=== PATIENT | male | born 1945 | race Caucasian/White ===

== ENCOUNTER 2021-09-15 19:12 | Emergency (ER) | payer MEDICARE, BC ==
--- NOTE | 2021-09-15 20:49 | EDM.PDOC ---
ED HPI GENERAL MEDICAL PROBLEM - General Stated Complaint: ANKLE INJURY Time Seen by Provider: 09/15/21 19:30 Source of Information: Reports: Patient History Limitations: Reports: No Limitations - History of Present Illness INITIAL COMMENTS - FREE TEXT/NARRATIVE: Patient presented to the ED because of right ankle injury. He missed a step while going down the steps from the tractor. He c/o 7/10 pain and can't ambulate. Right Ankle Pain Score (Numeric/FACES): 8 - Related Data Allergies Allergy/AdvReac Type Severity Reaction Status Date / Time No Known Allergies Allergy Verified 06/15/16 11:17 Home Meds: Home Meds Aspirin 81 mg PO DAILY 09/15/21 [History] Ezetimibe 10 mg PO DAILY 09/15/21 [History] Furosemide 10 mg PO DAILY 09/15/21 [History] Metoprolol Succinate 25 mg PO BEDTIME 09/15/21 [History] atorvaSTATin [Lipitor] 40 mg PO BEDTIME 09/15/21 [History] lisinopriL [Lisinopril] 2.5 mg PO DAILY 09/15/21 [History] Past Medical History HEENT History: Reports: Impaired Vision Gastrointestinal History: Reports: Colon Polyp Genitourinary History: Reports: Other (See Below) Other Genitourinary History: bladder infection, nephritis Musculoskeletal History: Reports: RA Review of Systems - Review of Systems Review Of Systems: See Below Constitutional: Reports: No Symptoms Eyes: Reports: No Symptoms Ears: Reports: No Symptoms Nose: Reports: No Symptoms Mouth/Throat: Reports: No Symptoms Respiratory: Reports: No Symptoms Cardiovascular: Reports: No Symptoms GI/Abdominal: Reports: No Symptoms Genitourinary: Reports: No Symptoms Musculoskeletal: Reports: Joint Pain, Joint Swelling Skin: Reports: No Symptoms Neurological: Reports: No Symptoms Psychiatric: Reports: No Symptoms ED EXAM, GENERAL - Physical Exam Exam: See Below Exam Limited By: No Limitations General Appearance: Alert, No Apparent Distress Eye Exam: Bilateral Eye: PERRL Ears: Normal External Exam, Normal Canal, Normal TMs Nose: Normal Inspection, Normal Mucosa, No Blood Throat/Mouth: Normal Inspection, Normal Lips, Normal Teeth, Normal Oropharynx, Normal Voice Head: Atraumatic, Normocephalic Neck: Normal Inspection, Supple, Non-Tender, Full Range of Motion Respiratory/Chest: No Respiratory Distress, Lungs Clear, Normal Breath Sounds, No Accessory Muscle Use, Chest Non-Tender Cardiovascular: Normal Peripheral Pulses, Regular Rate, Rhythm, No Edema, No Gallop, No JVD, No Murmur GI/Abdominal: Normal Bowel Sounds, Soft, Non-Tender, No Organomegaly, No Distention, No Abnormal Bruit Back Exam: Normal Inspection, Full Range of Motion Extremities: Normal Inspection, Other (tenderness and swelling medial aspect of the right ankle) Course - Vital Signs Text/Narrative:: Xray Rt ankle-see result, indeterminate Ct scan Rt ankle/ft-Negative Last Recorded V/S: Last Vital Signs Temp 36.7 C 09/15/21 19:15 Pulse 78 09/15/21 19:15 Resp 18 09/15/21 19:15 BP 135/71 09/15/21 19:15 Pulse Ox 98 09/15/21 19:15 - Orders/Labs/Meds Orders: Active Orders 24 hr Category Date Time Status Ankle Min 3V Rt [CR] Stat Exams 09/15/21 19:27 Taken Lower Extremity wo Cont Rt [CT] Stat Exams 09/15/21 20:42 Taken Departure - Departure Time of Disposition: 21:45 Disposition: Home, Self-Care 01 Condition: Good Clinical Impression: Ankle sprain - Discharge Information Instructions: Ankle Sprain Referrals: PCP,None [Primary Care Provider] - Additional Instructions: Please read discharge instructions on ankle sprain Use your crutches until your ankle feels better Take ibuprofen 600 mg with tylenol 500 mg every 4-6 hours as needed for pain Follow up as needed Sepsis Event Note (ED) - Focused Exam Vital Signs: Vital Signs Temp Pulse Resp BP Pulse Ox 09/15/21 19:15 36.7 C 78 18 135/71 98 - My Orders Last 24 Hours: My Active Orders 09/15/21 19:27 Ankle Min 3V Rt [CR] Stat 09/15/21 20:42 Lower Extremity wo Cont Rt [CT] Stat - Assessment/Plan Last 24 Hours: My Active Orders 09/15/21 19:27 Ankle Min 3V Rt [CR] Stat 09/15/21 20:42 Lower Extremity wo Cont Rt [CT] Stat
[2021-09-15 21:25] VITALS: BP 135/71; PULSE 78
== END 2021-09-15 21:48 | disposition home or self-care (01) ==
LOC: FB.ED 19:12
DX: S93.401A Sprain of unspecified ligament of right ankle, initial encounter (principal); Z79.82 Long term (current) use of aspirin; Z79.899 Other long term (current) drug therapy; X50.1XXA Overexertion from prolonged static or awkward postures, initial encounter
CPT/HCPCS: 73610-RT; 73700-RT; 99284-25

== ENCOUNTER 2023-11-17 14:27 | Inpatient (IN) | payer MEDICARE, BC ==
[2023-11-17] MEDS ORDERED: Sodium Chloride 0.9% 1,000 ML IV SCH (14:45)
[2023-11-17] MEDS ORDERED: Sodium Chloride 0.9% 10 ML Syringe FLUSH PRN (14:55)
[2023-11-17 15:30] LABS: BASOPHILS ABSOLUTE AUTO 0.1 x10-3/uL (0.0-0.3); BASOPHILS PERCENT AUTO 0.5 % (0.3-3.8); EOSINOPHILS ABSOLUTE AUTO 0.1 x10-3/uL (0.0-0.6); EOSINOPHILS PERCENT AUTO 0.5 % (0.1-6.8); HEMATOCRIT 43.3 % (38.3-50.1); HEMOGLOBIN 14.3 g/dL (12.9-17.7); LYMPHOCYTES ABSOLUTE AUTO 0.9 x10-3/uL (0.5-4.5); MEAN CORPUSCULAR HEMOGLOBIN 27.9 pg (27.0-33.3); MEAN CORPUSCULAR HGB CONC 32.9 g/dL (28.7-35.3); MEAN CORPUSCULAR VOLUME 84.8 fL (80.8-98.7); MEAN PLATELET VOLUME 8.6 fL (6.7-11.0); MONOCYTES ABSOLUTE AUTO 1.1 x10-3/uL (0.0-1.2); MONOCYTES PERCENT AUTO 7.9 % (5.5-15.2); NEUTROPHILS ABSOLUTE AUTO 12.2 x10-3/uL (1.7-6.9); NEUTROPHILS PERCENT AUTO 85.1 % (40.3-71.8); PLATELET COUNT,PLT 79 x10(3)uL (117-477); RED BLOOD CELL COUNT 5.11 x10(6)uL (3.90-5.90); RED CELL DISTRIBUTION WIDTH 15.8 % (12.4-15.0); WHITE BLOOD CELL COUNT,WBC 14.3 x10-3/uL (3.2-10.1)
[2023-11-17 15:38] LABS: A/G RATIO 0.5; ALANINE AMINOTRANSFERASE,ALT 51 U/L (12-36); ALBUMIN 2.9 g/dL (3.2-4.6); ALKALINE PHOSPHATASE 110 IU/L (56-112); ASPARTATE AMNIOTRANSFERASE,AST 102 IU/L (5-25); BILIRUBIN TOTAL 1.6 mg/dL (0.1-1.3); BLOOD UREA NITROGEN,BUN 92 mg/dL (7-18); CALCIUM 9.6 mg/dL (8.6-10.2); CARBON DIOXIDE,CO2 23 mmol/L (21-32); CHLORIDE,CL 98 mmol/L (100-110); ESTIMATED GFR 32 mL/min (>60); GLUCOSE RANDOM 128 mg/dL (80-116); POTASSIUM,K 4.4 mmol/L (3.5-5.3); PROTEIN TOTAL,TP 8.3 g/dL (6.0-8.0); SODIUM,NA 137 mmol/L (135-145)
[2023-11-17 15:43] LABS: BUN/CREATININE RATIO 43.8 (9-20); CREATININE 2.1 mg/dL (0.70-1.30)
[2023-11-17 16:48] LABS: CORONAVIRUS COVID-19 NAA NEGATIVE (NEGATIVE); INFLUENZA A NAA NEGATIVE (NEGATIVE); INFLUENZA B NAA NEGATIVE (NEGATIVE)
[2023-11-17 19:06] LABS: BILIRUBIN,URINE NEGATIVE (NEGATIVE); GLUCOSE,URINE NORMAL (NORMAL); KETONES,URINE 15 mg/dL (NEGATIVE); LEUKOCYTE ESTERASE,URINE LARGE (NEGATIVE); NITRITE,URINE NEGATIVE (NEGATIVE); OCCULT BLOOD,URINE LARGE (NEGATIVE); PROTEIN,URINE 30 mg/dL (NEGATIVE); UROBILINOGEN,URINE NORMAL (NEGATIVE)
[2023-11-17 19:08] LABS: APPEARANCE,URINE CLOUDY (CLEAR); COLOR,URINE YELLOW (YELLOW)
[2023-11-17 19:09] LABS: BACTERIA,URINE MANY (NS); SQUAMOUS EPITHELIAL CELLS,UR OCCASIONAL (NS,R,O); WBC,URINE 75-100 (0-5)
[2023-11-17] MEDS ORDERED: Acetaminophen 325 MG Tab PO PRN (19:25)
[2023-11-17] MEDS ORDERED: Sennosides/Docusate Sodium 50-8.6 MG Tab PO PRN (19:25)
[2023-11-17] MEDS ORDERED: Ondansetron 4 MG/2 ML SDV IV PRN (19:25)
[2023-11-17 20:38] LABS: INR 0.97 (1.00-1.24)
[2023-11-17 20:40] LABS: PTT,PARTIAL THROMBOPLSTIN TIME 25.7 SECONDS (24.4-33.2)
[2023-11-17 20:46] LABS: AMPHETAMINES SCREEN, URINE NEGATIVE (NEGATIVE); BARBITURATE SCREEN,URINE NEGATIVE (NEGATIVE); BENZODIAZEPINES SCREEN,URINE NEGATIVE (NEGATIVE); BUPRENORPHINE SCREEN,URINE NEGATIVE (NEGATIVE); METHADONE SCREEN, URINE NEGATIVE (NEGATIVE); METHAMPHETAMINE SCREEN, URINE NEGATIVE (NEGATIVE); OXYCODONE SCREEN,URINE NEGATIVE (NEGATIVE); THC SCREEN,URINE NEGATIVE (NEGATIVE)
[2023-11-17 20:46] LABS: LACTIC ACID 1.6 mmol/L (0.4-2.0)
[2023-11-17] MEDS ORDERED: Enoxaparin 30 MG/0.3 ML Syringe SUBCUT SCH ×2 (21:00)
[2023-11-17] MEDS ORDERED: atorvaSTATin 40 MG Tab PO SCH (21:00)
[2023-11-17] MEDS: Sodium Chloride 0.9% 10 ML Syringe FLUSH PRN (21:54)
[2023-11-17] MEDS: Sodium Chloride 0.9% 1,000 ML IV SCH (22:02)
[2023-11-17] MEDS: cefTRIAXone 1 GM Vial IVPUSH SCH (22:03)
[2023-11-17] MEDS: Metoprolol Succinate 25 MG Tab.ER PO SCH (22:03)
[2023-11-18 07:02] LABS: BASOPHILS PERCENT AUTO 0.2 % (0.3-3.8); EOSINOPHILS PERCENT AUTO 0.2 % (0.1-6.8); HEMATOCRIT 34.1 % (38.3-50.1); HEMOGLOBIN 11.5 g/dL (12.9-17.7); LYMPHOCYTES ABSOLUTE AUTO 1.1 x10-3/uL (0.5-4.5); LYMPHOCYTES PERCENT AUTO 10.4 % (15.8-45.3); MEAN CORPUSCULAR HEMOGLOBIN 28.1 pg (27.0-33.3); MEAN CORPUSCULAR HGB CONC 33.8 g/dL (28.7-35.3); MEAN CORPUSCULAR VOLUME 83.3 fL (80.8-98.7); MEAN PLATELET VOLUME 8.7 fL (6.7-11.0); NEUTROPHILS ABSOLUTE AUTO 8.8 x10-3/uL (1.7-6.9); NEUTROPHILS PERCENT AUTO 80.2 % (40.3-71.8); PLATELET COUNT,PLT 72 x10(3)uL (117-477); RED BLOOD CELL COUNT 4.09 x10(6)uL (3.90-5.90); RED CELL DISTRIBUTION WIDTH 15.2 % (12.4-15.0); WHITE BLOOD CELL COUNT,WBC 10.9 x10-3/uL (3.2-10.1)
[2023-11-18 07:16] LABS: A/G RATIO 0.5; ALANINE AMINOTRANSFERASE,ALT 39 U/L (12-36); ALBUMIN 2.1 g/dL (3.2-4.6); ALKALINE PHOSPHATASE 75 IU/L (56-112); ASPARTATE AMNIOTRANSFERASE,AST 63 IU/L (5-25); BILIRUBIN TOTAL 0.8 mg/dL (0.1-1.3); BLOOD UREA NITROGEN,BUN 58 mg/dL (7-18); CALCIUM 8.7 mg/dL (8.6-10.2); CARBON DIOXIDE,CO2 23 mmol/L (21-32); CHLORIDE,CL 107 mmol/L (100-110); CREATININE 0.9 mg/dL (0.70-1.30); ESTIMATED GFR 88 mL/min (>60); GLUCOSE RANDOM 107 mg/dL (80-116); POTASSIUM,K 2.9 mmol/L (3.5-5.3); PROTEIN TOTAL,TP 6.2 g/dL (6.0-8.0); SODIUM,NA 142 mmol/L (135-145)
[2023-11-18 07:17] LABS: BUN/CREATININE RATIO 64.4 (9-20)
[2023-11-18] MEDS: Sodium Chloride 0.9% 1,000 ML IV SCH (07:58)
[2023-11-18] MEDS ORDERED: Lisinopril 2.5 MG Tab PO SCH (09:00)
[2023-11-18] MEDS ORDERED: Ezetimibe 10 MG Tab PO SCH (09:00)
[2023-11-18] MEDS ORDERED: Fluconazole 150 MG Tab PO ONE (09:18)
[2023-11-18] MEDS ORDERED: Acetaminophen 500 MG Tab PO PRN (09:19)
[2023-11-18] MEDS: Potassium Chloride 20 MEQ Tab.ER PO SCH ×2 (10:37→20:33)
[2023-11-18] MEDS: cefTRIAXone 1 GM Vial IVPUSH SCH (20:32)
[2023-11-18] MEDS: Metoprolol Succinate 25 MG Tab.ER PO SCH (20:32)
[2023-11-18] MEDS: metFORMIN 500 MG Tab.ER PO SCH (20:32)
[2023-11-18] MEDS: Ezetimibe 10 MG Tab PO SCH (20:33)
[2023-11-18] MEDS ORDERED: Rosuvastatin 10 MG Tab PO SCH (21:00)
[2023-11-19 07:10] LABS: BASOPHILS PERCENT AUTO 0.4 % (0.3-3.8); EOSINOPHILS PERCENT AUTO 0.4 % (0.1-6.8); HEMATOCRIT 34.3 % (38.3-50.1); HEMOGLOBIN 11.3 g/dL (12.9-17.7); LYMPHOCYTES ABSOLUTE AUTO 1.7 x10-3/uL (0.5-4.5); MEAN CORPUSCULAR HEMOGLOBIN 27.8 pg (27.0-33.3); MEAN CORPUSCULAR VOLUME 84.2 fL (80.8-98.7); MEAN PLATELET VOLUME 8.6 fL (6.7-11.0); NEUTROPHILS ABSOLUTE AUTO 6.2 x10-3/uL (1.7-6.9); NEUTROPHILS PERCENT AUTO 69.2 % (40.3-71.8); PLATELET COUNT,PLT 79 x10(3)uL (117-477); RED BLOOD CELL COUNT 4.07 x10(6)uL (3.90-5.90); RED CELL DISTRIBUTION WIDTH 15.2 % (12.4-15.0); WHITE BLOOD CELL COUNT,WBC 8.9 x10-3/uL (3.2-10.1)
[2023-11-19 07:34] LABS: A/G RATIO 0.5; ALANINE AMINOTRANSFERASE,ALT 47 U/L (12-36); ALKALINE PHOSPHATASE 97 IU/L (56-112); ASPARTATE AMNIOTRANSFERASE,AST 52 IU/L (5-25); BILIRUBIN TOTAL 0.7 mg/dL (0.1-1.3); BLOOD UREA NITROGEN,BUN 21 mg/dL (7-18); CALCIUM 8.1 mg/dL (8.6-10.2); CARBON DIOXIDE,CO2 28 mmol/L (21-32); CHLORIDE,CL 107 mmol/L (100-110); CREATININE 0.7 mg/dL (0.70-1.30); ESTIMATED GFR 95 mL/min (>60); GLUCOSE RANDOM 130 mg/dL (80-116); PROTEIN TOTAL,TP 5.9 g/dL (6.0-8.0); SODIUM,NA 141 mmol/L (135-145)
[2023-11-19 07:46] LABS: CREATINE KINASE,CK 364 IU/L (60-160)
[2023-11-19] MEDS: metFORMIN 500 MG Tab.ER PO SCH ×2 (08:22→20:17)
[2023-11-19] MEDS: Aspirin 81 MG Tab.EC PO SCH (08:23)
[2023-11-19] MEDS: Potassium Chloride 20 MEQ Tab.ER PO SCH ×2 (08:23→20:16)
[2023-11-19] MEDS: Sennosides/Docusate Sodium 50-8.6 MG Tab PO SCH (08:24)
[2023-11-19] MEDS ORDERED: amLODIPine 5 MG Tab PO SCH (09:00)
[2023-11-19] MEDS: cefTRIAXone 1 GM Vial IVPUSH SCH (20:07)
[2023-11-19] MEDS: Sodium Chloride 0.9% 10 ML Syringe FLUSH PRN (20:07)
[2023-11-19] MEDS: Ezetimibe 10 MG Tab PO SCH (20:16)
[2023-11-19] MEDS: Metoprolol Succinate 25 MG Tab.ER PO SCH (20:16)
[2023-11-20] MEDS: metFORMIN 500 MG Tab.ER PO SCH ×2 (08:34→20:33)
[2023-11-20] MEDS: Potassium Chloride 20 MEQ Tab.ER PO SCH ×2 (08:35→20:33)
[2023-11-20] MEDS: Aspirin 81 MG Tab.EC PO SCH (08:35)
[2023-11-20] MEDS: Sennosides/Docusate Sodium 50-8.6 MG Tab PO SCH (08:36)
[2023-11-20] MEDS: cefTRIAXone 1 GM Vial IVPUSH SCH (20:32)
[2023-11-20] MEDS: Sodium Chloride 0.9% 10 ML Syringe FLUSH PRN (20:32)
[2023-11-20] MEDS: Metoprolol Succinate 25 MG Tab.ER PO SCH (20:33)
[2023-11-20] MEDS: Ezetimibe 10 MG Tab PO SCH (20:33)
[2023-11-21 06:59] LABS: BASOPHILS ABSOLUTE AUTO 0.1 x10-3/uL (0.0-0.3); BASOPHILS PERCENT AUTO 0.9 % (0.3-3.8); EOSINOPHILS ABSOLUTE AUTO 0.2 x10-3/uL (0.0-0.6); EOSINOPHILS PERCENT AUTO 2.6 % (0.1-6.8); HEMATOCRIT 37.6 % (38.3-50.1); HEMOGLOBIN 12.8 g/dL (12.9-17.7); LYMPHOCYTES ABSOLUTE AUTO 1.7 x10-3/uL (0.5-4.5); LYMPHOCYTES PERCENT AUTO 21.3 % (15.8-45.3); MEAN CORPUSCULAR HEMOGLOBIN 28.2 pg (27.0-33.3); MEAN CORPUSCULAR HGB CONC 33.9 g/dL (28.7-35.3); MEAN CORPUSCULAR VOLUME 83.1 fL (80.8-98.7); MEAN PLATELET VOLUME 8.1 fL (6.7-11.0); MONOCYTES ABSOLUTE AUTO 0.9 x10-3/uL (0.0-1.2); NEUTROPHILS ABSOLUTE AUTO 5.2 x10-3/uL (1.7-6.9); NEUTROPHILS PERCENT AUTO 64.2 % (40.3-71.8); PLATELET COUNT,PLT 153 x10(3)uL (117-477); RED BLOOD CELL COUNT 4.52 x10(6)uL (3.90-5.90); RED CELL DISTRIBUTION WIDTH 15.4 % (12.4-15.0)
[2023-11-21 07:06] LABS: BLOOD UREA NITROGEN,BUN 11 mg/dL (7-18); BUN/CREATININE RATIO 18.3 (9-20); CALCIUM 8.7 mg/dL (8.6-10.2); CARBON DIOXIDE,CO2 27 mmol/L (21-32); CHLORIDE,CL 102 mmol/L (100-110); CREATININE 0.6 mg/dL (0.70-1.30); EST CRCL DRUG DOSING (CG) 99.75 mL/min; ESTIMATED GFR 99 mL/min (>60); GLUCOSE RANDOM 138 mg/dL (80-116); POTASSIUM,K 4.1 mmol/L (3.5-5.3); SODIUM,NA 136 mmol/L (135-145)
[2023-11-21] MEDS: metFORMIN 500 MG Tab.ER PO SCH ×2 (08:59→20:55)
[2023-11-21] MEDS: Potassium Chloride 20 MEQ Tab.ER PO SCH ×2 (08:59→20:55)
[2023-11-21] MEDS: Aspirin 81 MG Tab.EC PO SCH (08:59)
[2023-11-21] MEDS: Sennosides/Docusate Sodium 50-8.6 MG Tab PO SCH (09:00)
[2023-11-21] MEDS: cefTRIAXone 1 GM Vial IVPUSH SCH (20:22)
[2023-11-21] MEDS: Sodium Chloride 0.9% 10 ML Syringe FLUSH PRN ×2 (20:22→20:31)
[2023-11-21] MEDS: Ezetimibe 10 MG Tab PO SCH (20:56)
[2023-11-21] MEDS: Metoprolol Succinate 25 MG Tab.ER PO SCH (20:56)
[2023-11-22] MEDS: Potassium Chloride 20 MEQ Tab.ER PO SCH (08:05)
[2023-11-22] MEDS: Aspirin 81 MG Tab.EC PO SCH (08:05)
[2023-11-22] MEDS: Sennosides/Docusate Sodium 50-8.6 MG Tab PO SCH (08:05)
[2023-11-22] MEDS: metFORMIN 500 MG Tab.ER PO SCH (08:06)
[2023-11-22 17:03] VITALS: BP 130/68; PULSE 74
== END 2023-11-22 13:10 | disposition home or self-care (01) | DRG 565 ==
LOC: FB.ED 14:27 → FB.MS 19:44 → OBSVTOIN 11-18 10:30
PROVIDERS: ADMIT Emergency Medicine; ATTEND Family Medicine
DX: T79.6XXA Traumatic ischemia of muscle, initial encounter (principal); I42.9 Cardiomyopathy, unspecified; I44.2 Atrioventricular block, complete; N17.9 Acute kidney failure, unspecified; I25.10 Atherosclerotic heart disease of native coronary artery without angina pectoris; F10.20 Alcohol dependence, uncomplicated; M62.82 Rhabdomyolysis; N35.919 Unspecified urethral stricture, male, unspecified site; I35.9 Nonrheumatic aortic valve disorder, unspecified; R73.09 Other abnormal glucose; D69.6 Thrombocytopenia, unspecified; E78.5 Hyperlipidemia, unspecified; N39.0 Urinary tract infection, site not specified; Z85.830 Personal history of malignant neoplasm of bone; E87.6 Hypokalemia; Z79.899 Other long term (current) drug therapy; E86.0 Dehydration; W01.0XXA Fall on same level from slipping, tripping and stumbling without subsequent striking against object, initial encounter; Z20.822 Contact with and (suspected) exposure to COVID-19; I50.9 Heart failure, unspecified; E11.9 Type 2 diabetes mellitus without complications; Z79.82 Long term (current) use of aspirin; Z86.010 Personal history of colon polyps; Z87.891 Personal history of nicotine dependence; Y92.091 Bathroom in other non-institutional residence as the place of occurrence of the external cause; Z95.810 Presence of automatic (implantable) cardiac defibrillator; Z93.59 Other cystostomy status; Z79.84 Long term (current) use of oral hypoglycemic drugs; Z11.52 Encounter for screening for COVID-19
CPT/HCPCS: 0240U; 36415; 70450; 71045; 73030-RT; 73562-RT; 73610-50; 80048; 80053; 80307; 81001; 82550; 82947; 83605; 83880; 84484; 85025; 85610; 85730; 87086; 87088; 87186; 93005; 93010; 97110-GP; 97161-GP; 97165-GO; 97530-GO; 97530-GP; 97535-GO; 99285; A9270-GY; J0696; J3490; J7030

== ENCOUNTER 2024-07-13 01:40 | Emergency (ER) | payer MEDICARE, BC ==
[2024-07-13 01:51] VITALS: BP 136/85; PULSE 114
== END 2024-07-13 02:28 | disposition home or self-care (01) ==
LOC: FB.ED 01:40
DX: T83.098A Other mechanical complication of other urinary catheter, initial encounter (principal); Z95.0 Presence of cardiac pacemaker
CPT/HCPCS: 51700; 99283